=== PATIENT | female | born 2000 | race Caucasian/White ===

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

== ENCOUNTER 2022-12-12 00:03 | Emergency (ER) | payer BC ==
[~2022-12-12] VITALS: Ht 172.7 cm; Wt 59.1 kg
[2022-12-12 00:40] LABS: COLLECTION METHOD CLEAN CATCH
[2022-12-12 00:46] LABS: SQUAMOUS EPITHELIAL 0-2 /hpf (0-10); URINE BACTERIA None Seen /hpf (NONE SEEN); URINE RBC 0-2 /hpf (0-2)
[2022-12-12 00:48] LABS: PH 5.5 (5.0-8.5); URINE APPEARANCE Clear (CLEAR/HAZY); URINE BLOOD Negative (NEGATIVE); URINE COLOR Yellow (YELLOW); URINE GLUCOSE Negative (NEGATIVE); URINE KETONE Negative (NEGATIVE); URINE NITRATE Negative (NEGATIVE); URINE PROTEIN(semi-quant) Negative (NEGATIVE); URINE UROBILINOGEN 0.2 E.U/dL (0.2-1.0)
[2022-12-12] MEDS ORDERED: FLAGYL500 MG PO (01:45)
[2022-12-12 01:55] VITALS: BP 119/75; PULSE 70; TEMP 98.1
== END 2022-12-12 01:55 | disposition home or self-care (01) ==
LOC: COL.ER 00:03
PROVIDERS: Emergency Medicine
DX: N76.0 Acute vaginitis (principal); B96.89 Other specified bacterial agents as the cause of diseases classified elsewhere